=== PATIENT | female | born 1965 | race Caucasian/White ===

== ENCOUNTER 2025-05-13 19:11 | Emergency (ER) | payer OTHER ==
[~2025-05-13] VITALS: Ht 170.2 cm; Wt 104.3 kg
[2025-05-13] MEDS ORDERED: FentaNYL Citrate 50 MCG/ML 2 ML Injection IV ONE (20:50)
[2025-05-13] MEDS ORDERED: Ketorolac Tromethamine 30mg Vial IV ONE (21:10)
[2025-05-13] MEDS ORDERED: RX Prepack 6 Tabs Oxycodone 5mg UD ONE (22:40)
[2025-05-13] MEDS ORDERED: Cyclobenzaprine HCl 10 MG Tab PO ONE (22:40)
[2025-05-13] MEDS ORDERED: CYCL10 PO (22:42)
[2025-05-13] MEDS ORDERED: OXYC5 PO (22:42)
== END 2025-05-13 23:20 | disposition home or self-care (01) ==
LOC: ER 19:11
DX: S80.11XA Contusion of right lower leg, initial encounter (principal); M79.651 Pain in right thigh; W19.XXXA Unspecified fall, initial encounter; Z88.2 Allergy status to sulfonamides
CPT/HCPCS: 72170; 72192; 73552; 96374; 96375; 99284-25; A9270; J1885; J3010